=== PATIENT | female | born 1995 | race Hispanic/Latino ===

== ENCOUNTER 2020-07-29 20:01 | Emergency (ER) | payer OTHER ==
[2020-07-29] MEDS ORDERED: IBUPROFEN 800 MG TAB ONE (20:24)
== END 2020-07-29 22:02 | disposition home or self-care (01) ==
LOC: EDH 20:01
DX: S82.65XA Nondisplaced fracture of lateral malleolus of left fibula, initial encounter for closed fracture (principal); W18.39XA Other fall on same level, initial encounter; Y93.89 Activity, other specified; Y92.098 Other place in other non-institutional residence as the place of occurrence of the external cause; Y99.8 Other external cause status
CPT/HCPCS: 29515; 73610